=== PATIENT | female | born 1995 | race American Indian/Alaskan Native ===

== ENCOUNTER 2020-04-01 00:15 | Emergency (ER) | payer SELFPAY ==
[2020-04-01 01:33] LABS: Alanine Aminotransferase 14 units/L (7-56); BUN/Creatinine Ratio 14; Blood Urea Nitrogen 11 mg/dL (7-17); Calcium 10.3 mg/dL (8.4-10.2); Hemolysis Index 8
[2020-04-01 01:47] LABS: Hematocrit 38.3 % (30.3-42.9); Hemoglobin 12.7 gm/dl (10.1-14.3); Mean Corpuscular HGB Conc 33 % (30-34); Mean Corpuscular Volume 89 fl (79-97); Platelet Count 330 K/mm3 (140-440); Red Blood Count 4.28 M/mm3 (3.65-5.03); Red Cell Distribution Width 14.1 % (13.2-15.2)
[2020-04-01 02:04] LABS: Bacteria,Urine 1+ /HPF (Negative); Bilirubin,Urine NEG (Negative); Blood,Urine NEG (Negative); Color,Urine Amber (Yellow); Mucus,Urine 3+ /HPF; Urobilinogen,Urine < 2.0 mg/dL (<2.0)
[2020-04-01 02:57] LABS: Anisocytosis 1+; Basophils % (Manual) 0 % (0.0-1.8); Eosinophils % (Manual) 0 % (0.0-4.3); Monocytes % (Manual) 0 % (0.0-7.3); Platelet Estimate Consistent w Auto; Total Cells Counted 100
[2020-04-01] MEDS ORDERED: MORPHINE 4 MG/1 ML INJ IV ONE (03:15)
[2020-04-01] MEDS ORDERED: SODIUM CHLORIDE 0.9% 1000 ML 1,000 ML IV ONE (03:15)
[2020-04-01] MEDS ORDERED: ONDANSETRON 4 MG/2 ML INJ IV ONE ×2 (03:15→05:32)
[2020-04-01] MEDS ORDERED: PANTOPRAZOLE 40 MG INJ IV ONE (03:19)
--- NOTE | 2020-04-01 03:19 | Emergency Department Report ---
ED Abdominal Pain HPI - General Chief Complaint: Abdominal Pain Stated Complaint: NAUSEA, VOMITING BLOOD PUI?: No Time Seen by Provider: 04/01/20 03:12 Source: patient, EMS Mode of arrival: Stretcher Limitations: No Limitations - History of Present Illness Initial Comments: This is a 24-year-old female with history of daily marijuana use who presents with abdominal pain nausea vomiting for 1 week. She states that she has had stomach problems for 8 or 9 years. She plans to follow-up with GI clinic at [facility]. Moderately severe diffuse crampy abdominal pain. Past surgical history: Appendectomy MD Complaint: abdominal pain -: Gradual, week(s) (1) Location: diffuse Severity: moderate Severity scale (0 -10): 8 Quality: cramping Consistency: intermittent Improves With: nothing Worsens With: eating Associated Symptoms: nausea, vomiting - Related Data Previous Rx's Medication Instructions Recorded Last Taken Type Promethazine [Phenergan] 25 mg PO Q6HR PRN #10 tab 01/30/20 Unknown Rx Famotidine [Pepcid] 20 mg PO BID 30 Days #60 tablet 01/31/20 Unknown Rx Ondansetron [Zofran Odt] 4 mg PO Q8HR #10 tab.rapdis 01/31/20 Unknown Rx Ondansetron [Zofran Odt] 4 mg PO Q8HR PRN #10 tab.rapdis 04/01/20 Unknown Rx Allergies Allergy/AdvReac Type Severity Reaction Status Date / Time No Known Allergies Allergy Verified 07/05/16 03:50 ED Review of Systems ROS: Stated complaint: NAUSEA, VOMITING BLOOD Other details as noted in HPI Comment: All other systems reviewed and negative Constitutional: denies: fever, malaise Respiratory: denies: shortness of breath Gastrointestinal: abdominal pain, nausea, vomiting. denies: diarrhea, consti pation ED Past Medical Hx - Past Medical History Previous Medical History?: No - Surgical History Past Surgical History?: Yes Hx Appendectomy: Yes Additional Surgical History: bilateral feet - Social History Smoking Status: Current Every Day Smoker Substance Use Type: None, Marijuana - Medications Home Medications: Home Medications Medication Instructions Recorded Confirmed Last Taken Type Promethazine [Phenergan] 25 mg PO Q6HR PRN #10 tab 01/30/20 Unknown Rx Famotidine [Pepcid] 20 mg PO BID 30 Days #60 tablet 01/31/20 Unknown Rx Ondansetron [Zofran Odt] 4 mg PO Q8HR #10 tab.rapdis 01/31/20 Unknown Rx Ondansetron [Zofran Odt] 4 mg PO Q8HR PRN #10 tab.rapdis 04/01/20 Unknown Rx ED Physical Exam - General Limitations: No Limitations General appearance: alert, in no apparent distress, other (Appears uncomfortable) - Head Head exam: Present: atraumatic, normocephalic - Eye Eye exam: Present: normal appearance - ENT ENT exam: Present: mucous membranes moist - Neck Neck exam: Present: normal inspection, full ROM - Respiratory Respiratory exam: Present: normal lung sounds bilaterally. Absent: respiratory distress - Cardiovascular Cardiovascular Exam: Present: regular rate, normal rhythm. Absent: systolic murmur, diastolic murmur, rubs, gallop - GI/Abdominal GI/Abdominal exam: Present: soft, normal bowel sounds. Absent: distended, tend erness, guarding, rebound - Extremities Exam Extremities exam: Present: normal inspection - Neurological Exam Neurological exam: Present: alert, oriented X3 - Psychiatric Psychiatric exam: Present: normal affect, normal mood - Skin Skin exam: Present: warm, dry, intact, normal color. Absent: rash ED Course Vital Signs 04/01/20 04/01/20 04/01/20 00:38 03:45 03:50 Temperature 98.1 F Pulse Rate 89 90 Respiratory 18 20 20 Rate Blood Pressure 126/75 Blood Pressure 144/82 [Left] O2 Sat by Pulse 99 99 Oximetry 04/01/20 03:53 Temperature Pulse Rate Respiratory 20 Rate Blood Pressure Blood Pressure [Left] O2 Sat by Pulse 98 Oximetry ED Medical Decision Making - Lab Data Result diagrams: 04/01/20 00:53 04/01/20 00:53 - Radiology Data Radiology results: report reviewed CT abdomen pelvis revealed no evidence of acute inflammatory obstructive process within the abdomen or pelvis - Medical Decision Making This is a 24-year-old female with history of marijuana use who presents with recurrent abdominal pain. With leukocytosis, CT abdomen pelvis is warranted to rule out acute inflammatory process of the pelvis and abdomen. Differential diagnosis: IBS, cannabinoid hyperemesis syndrome, inflammatory bowel disease, peptic ulcer disease Patient was resuscitated with IV analgesia IV fluid IV antiemetics referred to GI specialist Critical care attestation.: If time is entered above; I have spent that time in minutes in the direct care of this critically ill patient, excluding procedure time. ED Disposition Clinical Impression: Abdominal pain Disposition: DC- TO HOME OR SELFCARE Is pt being admited?: No Does the pt Need Aspirin: No Condition: Stable Instructions: Abdominal Pain (ED) Prescriptions: Ondansetron [Zofran Odt] 4 mg PO Q8HR PRN #10 tab.rapdis PRN Reason: Nausea Referrals: ESMER WILKS MD [Staff Physician] - 3-5 Days Forms: Work/School Release Form(ED)
--- NOTE | 2020-04-01 04:16 | Cat Scan Report ---
CT ABDOMEN AND PELVIS WITHOUT CONTRAST INDICATION: Abdominal pain TECHNICAL: Multiple axial CT images of the abdomen and pelvis were acquired without intravenous contr ast. Sagittal and coronal reformats were obtained. All CTs at this facility utilize dose reduction techniques including automated exposure control, iterative reconstruction and weight based dosing whe n appropriate to reduce patient radiation dose to as low as reasonable achievable. COMPARISON: None. FINDINGS: Limited imaging of the bilateral lung bases demonstrates no evidence of acute abnormality. Abdomen: Evaluation is limited secondary to the lack of intravenous contrast and lack of intra-abdomi nal fat. Given these limitations, the liver, gallbladder, spleen, pancreas, bilateral adrenal glands and bilateral kidneys show no evidence of acute abnormality. There is no evidence of bowel obstructio n. Postsurgical changes are noted within the right lower quadrant and may be related to previous appe ndectomy. The appendix is not identified. Pelvis: No large amount of free pelvic fluid is visualized. The urinary bladder is decompressed. Bones and Soft Tissues: Evaluation of bony structures demonstrates no evidence of acute bony abnorma lity. Evaluation of soft tissue structures demonstrates no evidence of acute soft tissue abnormality. IMPRESSION: 1. No CT evidence of acute inflammatory or obstructive process within the abdomen or pelvis. Signer Name: Liz Ortega MD Signed: 04/01/2020 4:11 AM Workstation Name: [id number]
[2020-04-01 07:24] VITALS: BP 134/77
== END 2020-04-01 07:50 | disposition home or self-care (01) ==
LOC: ED 00:15
DX: R10.9 Unspecified abdominal pain (principal); F12.90 Cannabis use, unspecified, uncomplicated; F17.200 Nicotine dependence, unspecified, uncomplicated; Z79.899 Other long term (current) drug therapy; Z90.49 Acquired absence of other specified parts of digestive tract; Z98.890 Other specified postprocedural states
CPT/HCPCS: 36415; 74176; 80053; 81001; 83690; 84703; 85007; 85025; 96361; 96374; 96375; 96376; 99285; C9113; J2270; J2405; J7030

== ENCOUNTER 2020-07-02 07:42 | Emergency (ER) | payer SELFPAY ==
[2020-07-02] MEDS ORDERED: SODIUM CHLORIDE 0.9% 1000 ML 1,000 ML IV ONE ×2 (08:11→13:21)
[2020-07-02] MEDS ORDERED: MORPHINE 4 MG/1 ML INJ IV ONE (08:11)
[2020-07-02] MEDS ORDERED: ONDANSETRON 4 MG/2 ML INJ IV ONE (08:11)
[2020-07-02] MEDS ORDERED: ONDANSETRON 4 MG/2 ML INJ ONE (08:15)
[2020-07-02] MEDS ORDERED: MORPHINE 2 MG/1 ML INJ ONE (08:15)
--- NOTE | 2020-07-02 08:19 | Emergency Department Report ---
ED Abdominal Pain HPI - General Chief Complaint: Abdominal Pain Stated Complaint: ABD PAIN Time Seen by Provider: 07/02/20 08:10 Source: patient, EMS Mode of arrival: Wheelchair Limitations: No Limitations - History of Present Illness Initial Comments: Patient is 24 years old female with no significant past medical history. Patient presented to the ER complaining of diffuse abdominal pain, nausea and vomiting for the last 3 days. Patient described her pain as sharp with no radiation. Patient denied any diarrhea. No fever or chills. Patient stated that she has similar episode like this in the last few month. Patient was seen here last month and also a months before that and she had a CT abdomen and pelvis with IV contrast and came back negative for acute finding. MD Complaint: abdominal pain -: days(s) (3) Location: diffuse Radiation: none Severity: moderate Severity scale (0 -10): 5 Quality: sharp - Related Data Previous Rx's Medication Instructions Recorded Last Taken Type Ketorolac [Toradol] 10 mg PO Q6H PRN #20 tablet 07/02/20 Unknown Rx Ondansetron [Zofran Odt] 4 mg PO Q8HR PRN #14 tab.rapdis 07/02/20 Unknown Rx Allergies Allergy/AdvReac Type Severity Reaction Status Date / Time No Known Allergies Allergy Verified 07/05/16 03:50 ED Review of Systems ROS: Stated complaint: ABD PAIN Other details as noted in HPI Comment: All other systems reviewed and negative Constitutional: denies: chills, fever Respiratory: denies: cough, shortness of breath, SOB with exertion, SOB at rest, wheezing Cardiovascular: denies: chest pain Gastrointestinal: abdominal pain, nausea, vomiting. denies: diarrhea, constipation, hematemesis, hematochezia Musculoskeletal: denies: back pain Neurological: denies: headache, weakness, numbness, paresthesias, confusion, abnormal gait ED Past Medical Hx - Past Medical History Previous Medical History?: No - Surgical History Past Surgical History?: Yes Hx Appendectomy: Yes Additional Surgical History: bilateral feet - Social History Smoking Status: Current Every Day Smoker Substance Use Type: Alcohol - Medications Home Medications: Home Medications Medication Instructions Recorded Confirmed Last Taken Type Ketorolac [Toradol] 10 mg PO Q6H PRN #20 tablet 07/02/20 Unknown Rx Ondansetron [Zofran Odt] 4 mg PO Q8HR PRN #14 tab.rapdis 07/02/20 Unknown Rx ED Physical Exam - General Limitations: No Limitations General appearance: alert, in distress (Patient is actively vomiting.) - Head Head exam: Present: atraumatic, normocephalic, normal inspection - Eye Eye exam: Present: normal appearance - ENT ENT exam: Present: mucous membranes dry - Neck Neck exam: Present: normal inspection, full ROM. Absent: tenderness, meningismus - Respiratory Respiratory exam: Present: normal lung sounds bilaterally - Cardiovascular Cardiovascular Exam: Present: tachycardia - GI/Abdominal GI/Abdominal exam: Present: soft, normal bowel sounds. Absent: distended, tenderness, guarding, rebound, rigid, mass, bruit, pulsatile mass, hernia - Extremities Exam Extremities exam: Present: normal inspection, full ROM, normal capillary refill. Absent: tenderness, pedal edema, joint swelling, calf tenderness - Back Exam Back exam: Present: normal inspection, full ROM. Absent: CVA tenderness (R), CVA tenderness (L) - Neurological Exam Neurological exam: Present: alert, oriented X3, CN II-XII intact, normal gait, reflexes normal. Absent: motor sensory deficit - Psychiatric Psychiatric exam: Present: normal mood - Skin Skin exam: Present: warm, intact, normal color ED Course Vital Signs 07/02/20 07/02/20 07/02/20 07:43 07:46 08:06 Temperature 98.0 F 98.0 F Pulse Rate 111 H 114 H Respiratory 24 20 Rate Blood Pressure 145/101 145/101 O2 Sat by Pulse 98 96 100 Oximetry 07/02/20 07/02/20 07/02/20 08:15 08:30 08:45 Temperature Pulse Rate 77 113 H 77 Respiratory 12 16 29 H Rate Blood Pressure 139/91 152/99 146/92 O2 Sat by Pulse 99 100 98 Oximetry 07/02/20 07/02/20 07/02/20 09:00 09:15 09:30 Temperature Pulse Rate 94 H 78 85 Respiratory 12 17 24 Rate Blood Pressure 138/96 130/84 130/85 O2 Sat by Pulse 95 98 Oximetry 07/02/20 07/02/20 07/02/20 10:47 11:00 11:15 Temperature Pulse Rate 71 79 Respiratory 14 11 L Rate Blood Pressure 130/85 131/82 144/92 O2 Sat by Pulse Oximetry 07/02/20 07/02/20 07/02/20 11:30 11:45 12:00 Temperature Pulse Rate 73 74 78 Respiratory 15 11 L 12 Rate Blood Pressure 130/81 131/92 131/78 O2 Sat by Pulse Oximetry 07/02/20 07/02/20 07/02/20 12:15 12:30 12:45 Temperature Pulse Rate 72 81 80 Respiratory 18 18 20 Rate Blood Pressure 123/77 127/77 127/80 O2 Sat by Pulse 98 96 Oximetry 07/02/20 07/02/20 07/02/20 13:00 13:16 13:30 Temperature Pulse Rate 136 H 73 76 Respiratory 21 23 20 Rate Blood Pressure 127/80 138/83 138/84 O2 Sat by Pulse Oximetry 07/02/20 07/02/20 07/02/20 13:45 14:00 14:15 Temperature Pulse Rate 74 78 76 Respiratory 22 21 17 Rate Blood Pressure 131/86 131/86 137/87 O2 Sat by Pulse Oximetry 07/02/20 07/02/20 07/02/20 14:31 14:45 15:01 Temperature Pulse Rate 96 H 93 H 82 Respiratory 20 18 20 Rate Blood Pressure 130/89 130/89 130/89 O2 Sat by Pulse Oximetry 07/02/20 07/02/20 07/02/20 15:15 15:31 15:45 Temperature Pulse Rate 73 78 74 Respiratory 17 17 16 Rate Blood Pressure 130/89 130/89 130/89 O2 Sat by Pulse 98 98 99 Oximetry 07/02/20 07/02/20 07/02/20 16:01 16:15 16:30 Temperature Pulse Rate 84 100 H 87 Respiratory 20 17 19 Rate Blood Pressure 130/89 140/89 O2 Sat by Pulse 97 100 Oximetry ED Medical Decision Making - Lab Data Result diagrams: 07/02/20 08:35 07/02/20 08:35 - Radiology Data Radiology results: report reviewed - Medical Decision Making Patient is 24 years old female with no significant past medical history. Patient presented to the ER complaining of diffuse abdominal pain, nausea and vomiting for the last 3 days. Patient described her pain as sharp with no radiation. Patient denied any diarrhea. No fever or chills. Patient stated that she has similar episode like this in the last few month. Patient was seen here last month and also a months before that and she had a CT abdomen and pelvis with IV contrast and came back negative for acute finding. Patient received multiantiemetic medication including Zofran, Reglan and Benadryl. Patient stated that she is feeling much better now. No vomiting. Labs reviewed and is unremarkable except for potassium of 2.9 replaced with potassium chloride 20 mEq IV and 40 mEq p.o. I discussed with the patient the possibility of cannabinoid syndrome. Patient admitted that her symptoms usually start after she smoked marijuana. Patient given prescription for Zofran and ketorolac for pain and advised to follow-up with her primary doctor in the next 2 to 3 days and to return to the ER if she develop any new symptoms. Critical care attestation.: If time is entered above; I have spent that time in minutes in the direct care of this critically ill patient, excluding procedure time. ED Disposition Clinical Impression: Abdominal pain, Intractable nausea and vomiting, Cannabinoid hyperemesis syndrome Disposition: - TO HOME OR SELFCARE Is pt being admited?: No Condition: Stable Instructions: Nausea and Vomiting, Adult, [id number], Cannabinoid Hyperemesis Syndrome, Abdominal Pain (ED) Prescriptions: Ketorolac [Toradol] 10 mg PO Q6H PRN #20 tablet PRN Reason: Pain Ondansetron [Zofran Odt] 4 mg PO Q8HR PRN #14 tab.rapdis PRN Reason: Nausea And Vomiting Referrals: PRIMARY CARE, [Primary Care Provider] - 3-5 Days
[2020-07-02] MEDS ORDERED: diphenhydrAMINE 50 MG/ML VIAL ONE (08:54)
[2020-07-02 09:00] LABS: Basophils # (Auto) 0.1 K/mm3 (0.0-0.1); Basophils % (Auto) 0.9 % (0.0-1.8); Eosinophils # (Auto) 0.1 K/mm3 (0.0-0.4); Eosinophils % (Auto) 0.9 % (0.0-4.3); Hematocrit 37.1 % (30.3-42.9); Hemoglobin 12.9 gm/dl (10.1-14.3); Lymphocytes # (Auto) 1.2 K/mm3 (1.2-5.4); Lymphocytes % (Auto) 16.9 % (13.4-35.0); Mean Corpuscular HGB Conc 35 % (30-34); Mean Corpuscular Volume 86 fl (79-97); Monocytes # (Auto) 0.5 K/mm3 (0.0-0.8); Monocytes % (Auto) 7.8 % (0.0-7.3); Platelet Count 319 K/mm3 (140-440); Red Blood Count 4.33 M/mm3 (3.65-5.03); Red Cell Distribution Width 13.3 % (13.2-15.2)
[2020-07-02] MEDS ORDERED: diphenhydrAMINE 50 MG/ML VIAL IV ONE (09:00)
[2020-07-02 09:19] LABS: Alanine Aminotransferase 9 units/L (7-56); Albumin 4.3 g/dL (3.9-5); Blood Urea Nitrogen 12 mg/dL (7-17); Calcium 9.2 mg/dL (8.4-10.2); Hemolysis Index 2
[2020-07-02 09:22] LABS: BUN/Creatinine Ratio 17
[2020-07-02 10:09] LABS: Amphetamine Screen,Urine PRESUMPTIVE NEGATIVE; Bacteria,Urine 1+ /HPF (Negative); Benzodiazepines Screen,Urine PRESUMPTIVE NEGATIVE; Bilirubin,Urine NEG (Negative); Blood,Urine MOD (Negative); Cannabinoid Screen,Urine PRESUMPTIVE POSITIVE; Cocaine Screen,Urine PRESUMPTIVE NEGATIVE; Color,Urine Yellow (Yellow); Methadone Screen,Urine PRESUMPTIVE NEGATIVE; Mucus,Urine FEW /HPF; Opiate Screen,Urine PRESUMPTIVE POSITIVE; Urobilinogen,Urine < 2.0 mg/dL (<2.0)
[2020-07-02 10:21] LABS: Protein,Urine <15 mg/dL mg/dL (Negative)
[2020-07-02] MEDS ORDERED: POTASSIUM CHLORIDE ER 20 MEQ TAB PO ONE (10:27)
[2020-07-02] MEDS: POTASSIUM CHLORIDE 10 MEQ 10 MEQ/100 ML BAG IV SCH ×2 (10:51→12:53)
[2020-07-02] MEDS ORDERED: METOCLOPRAMIDE 10 MG/2 ML INJ ONE (11:54)
[2020-07-02] MEDS ORDERED: METOCLOPRAMIDE 10 MG/2 ML INJ IV ONE (11:57)
[2020-07-02] MEDS ORDERED: HALOPERIDOL LACTATE 5 MG/1 ML INJ IM ONE (14:52)
[2020-07-02 16:18] VITALS: BP 140/89
== END 2020-07-02 16:30 | disposition home or self-care (01) ==
LOC: ED 07:42
DX: R10.84 Generalized abdominal pain (principal); R11.2 Nausea with vomiting, unspecified; R11.10 Vomiting, unspecified; F17.200 Nicotine dependence, unspecified, uncomplicated; Z90.49 Acquired absence of other specified parts of digestive tract; Z79.899 Other long term (current) drug therapy
CPT/HCPCS: 36415; 80053; 80307; 81001; 83690; 84703; 85025; 96361; 96372; 96374; 96375; 99284; J1200; J1630; J2270; J2405; J2765; J3480; J7030

== ENCOUNTER 2020-09-03 09:12 | Emergency (ER) | payer SELFPAY ==
--- NOTE | 2020-09-03 09:27 | Event Note ---
ED Screening Note ED Screening Note: gen abd pain n/v for 3 days has had before heavy thc use etoh no cig psh appendectomy rx none tachynpic on arrival This initial assessment/diagnostic orders/clinical plan/treatment(s) is/are subject to change based on patients health status, clinical progression and re- assessment by fellow clinical providers in the ED. Further treatment and workup at subsequent clinical providers discretion. Patient/guardian urged not to elope from the ED as their condition may be serious if not clinically assessed and managed. Initial orders include: labs
[2020-09-03 09:31] VITALS: BP 147/94
[2020-09-03 11:11] LABS: Basophils % (Auto) 0.4 % (0.0-1.8); Hematocrit 36.2 % (30.3-42.9); Hemoglobin 11.8 gm/dl (10.1-14.3); Lymphocytes # (Auto) 0.6 K/mm3 (1.2-5.4); Lymphocytes % (Auto) 8.5 % (13.4-35.0); Mean Corpuscular HGB Conc 33 % (30-34); Mean Corpuscular Volume 87 fl (79-97); Monocytes # (Auto) 0.5 K/mm3 (0.0-0.8); Monocytes % (Auto) 6.7 % (0.0-7.3); Platelet Count 402 K/mm3 (140-440); Red Blood Count 4.14 M/mm3 (3.65-5.03); Red Cell Distribution Width 15.2 % (13.2-15.2)
[2020-09-03] MEDS ORDERED: ONDANSETRON 4 MG/2 ML INJ IV ONE ×2 (11:23→11:41)
[2020-09-03] MEDS ORDERED: SODIUM CHLORIDE 0.9% 1000 ML 1,000 ML IV ONE (11:23)
[2020-09-03] MEDS ORDERED: diphenhydrAMINE 50 MG/ML VIAL IV ONE (11:23)
[2020-09-03] MEDS ORDERED: FAMOTIDINE 20 MG/2 ML INJ IV ONE (11:23)
--- NOTE | 2020-09-03 11:29 | Emergency Department Report ---
ED General Adult HPI - General Chief complaint: Abdominal Pain Stated complaint: ABDOMINAL PAIN Time Seen by Provider: 09/03/20 09:25 Source: patient Mode of arrival: Ambulatory Limitations: No Limitations - History of Present Illness Initial comments: Patient is a 24-year-old female presents emergency room with complaints of nausea vomiting that began 3 days ago. She states that she has generalized abdominal discomfort. She states that she had one episode of vomiting which had small streaks of blood after she had been frequently vomiting. She has no heavy amount of bleeding or passing clots. She states that she is unable to tolerate p.o. intake. She states that she has this frequently. She has a GI doctor at [facility] and last saw them in August 2019. She states that she needs to make another appointment with them. She is a heavy marijuana user and continues to use marijuana despite her symptoms. She states that she also drank alcohol 3 days ago before her symptoms began. She denies any fever, chills, urinary symptoms, hematochezia, melena. Past medical history of asthma. Past surgical history of appendectomy. No allergies to medications. Last menstrual cycle beginning of August 2020. - Related Data Previous Rx's Medication Instructions Recorded Last Taken Type Ketorolac [Toradol] 10 mg PO Q6H PRN #20 tablet 07/02/20 Unknown Rx Ondansetron [Zofran Odt] 4 mg PO Q8HR PRN #14 tab.rapdis 07/02/20 Unknown Rx Ondansetron [Zofran Odt] 4 mg PO Q8HR PRN #20 tab.rapdis 09/03/20 Unknown Rx Promethazine HCl [Phenergan SUPPOS] 25 mg RC Q8HR PRN #10 supp.rect 09/03/20 Unknown Rx Allergies Allergy/AdvReac Type Severity Reaction Status Date / Time No Known Allergies Allergy Verified 07/05/16 03:50 ED Review of Systems ROS: Stated complaint: ABDOMINAL PAIN Other details as noted in HPI Comment: All other systems reviewed and negative ED Past Medical Hx - Past Medical History Previous Medical History?: Yes Hx Hypertension: Yes Hx Asthma: Yes - Surgical History Hx Appendectomy: Yes Additional Surgical History: bilateral feet - Social History Smoking Status: Never Smoker Substance Use Type: Marijuana - Medications Home Medications: Home Medications Medication Instructions Recorded Confirmed Last Taken Type Ketorolac [Toradol] 10 mg PO Q6H PRN #20 tablet 07/02/20 Unknown Rx Ondansetron [Zofran Odt] 4 mg PO Q8HR PRN #14 tab.rapdis 07/02/20 Unknown Rx Ondansetron [Zofran Odt] 4 mg PO Q8HR PRN #20 tab.rapdis 09/03/20 Unknown Rx Promethazine HCl [Phenergan SUPPOS] 25 mg RC Q8HR PRN #10 supp.rect 09/03/20 Unknown Rx ED Physical Exam - General Limitations: No Limitations General appearance: alert, in no apparent distress - Head Head exam: Present: atraumatic, normocephalic - Eye Eye exam: Present: normal appearance - ENT ENT exam: Present: mucous membranes dry - Respiratory Respiratory exam: Present: normal lung sounds bilaterally. Absent: respiratory distress, wheezes, rales, rhonchi, stridor, chest wall tenderness, accessory muscle use, decreased breath sounds, prolonged expiratory - Cardiovascular Cardiovascular Exam: Present: regular rate, normal rhythm, normal heart sounds. Absent: systolic murmur, diastolic murmur, rubs, gallop - GI/Abdominal GI/Abdominal exam: Present: soft, normal bowel sounds. Absent: distended, tenderness, guarding, rebound, rigid - Neurological Exam Neurological exam: Present: alert, oriented X3 - Psychiatric Psychiatric exam: Present: normal affect, normal mood - Skin Skin exam: Present: warm, dry, intact ED Course Vital Signs 09/03/20 09:27 Temperature 98.0 F Pulse Rate 121 H Respiratory 20 Rate Blood Pressure 147/94 O2 Sat by Pulse 99 Oximetry ED Medical Decision Making - Lab Data Result diagrams: 09/03/20 10:35 09/03/20 10:35 Lab Results 09/03/20 09/03/20 09/03/20 Range/Units 10:35 10:35 14:40 WBC 7.3 (4.5-11.0) K/mm3 RBC 4.14 (3.65-5.03) M/mm3 Hgb 11.8 (10.1-14.3) gm/dl Hct 36.2 (30.3-42.9) % MCV 87 (79-97) fl MCH 29 (28-32) pg MCHC 33 (30-34) % RDW 15.2 (13.2-15.2) % Plt Count 402 (140-440) K/mm3 Lymph % (Auto) 8.5 L (13.4-35.0) % [place] % (Auto) 6.7 (0.0-7.3) % Eos % (Auto) 0.0 (0.0-4.3) % Baso % (Auto) 0.4 (0.0-1.8) % Lymph # (Auto) 0.6 L (1.2-5.4) K/mm3 [place] # (Auto) 0.5 (0.0-0.8) K/mm3 Eos # (Auto) 0.0 (0.0-0.4) K/mm3 Baso # (Auto) 0.0 (0.0-0.1) K/mm3 Seg Neutrophils % 84.4 H (40.0-70.0) % Seg Neutrophils # 6.1 (1.8-7.7) K/mm3 Sodium 137 (137-145) mmol/L Potassium 3.7 (3.6-5.0) mmol/L Chloride 100.1 (98-107) mmol/L Carbon Dioxide 26 (22-30) mmol/L Anion Gap 15 mmol/L BUN 9 (7-17) mg/dL Creatinine 0.7 (0.6-1.2) mg/dL Estimated GFR > 60 ml/min BUN/Creatinine Ratio 13 % Glucose 129 H (65-100) mg/dL Calcium 10.1 (8.4-10.2) mg/dL Total Bilirubin 0.40 (0.1-1.2) mg/dL AST 15 (5-40) units/L ALT 10 (7-56) units/L Alkaline Phosphatase 52 (35-129) units/L Total Creatine Kinase 130 (30-135) units/L Total Protein 8.0 (6.3-8.2) g/dL Albumin 4.9 (3.9-5) g/dL Albumin/Globulin Ratio 1.6 % Lipase 11 L (13-60) units/L Urine Color Yellow (Yellow) Urine Turbidity Cloudy (Clear) Urine pH 7.0 (5.0-7.0) Ur Specific [place] 1.011 (1.003-1.030) Urine Protein <15 mg/dl (Negative) mg/dL Urine Glucose (UA) Neg (Negative) mg/dL Urine Ketones 20 (Negative) mg/dL Urine Blood Neg (Negative) Urine Nitrite Neg (Negative) Urine Bilirubin Neg (Negative) Urine Urobilinogen < 2.0 (<2.0) mg/dL Ur Leukocyte Esterase Tr (Negative) Urine WBC (Auto) 5.0 (0.0-6.0) /HPF Urine RBC (Auto) 1.0 (0.0-6.0) /HPF U Epithel Cells (Auto) 34.0 H (0-13.0) /HPF Urine Bacteria (Auto) 1+ (Negative) /HPF Urine Mucus Few /HPF Urine HCG, Qual Negative (Negative) Vital Signs 09/03/20 09:27 Temperature 98.0 F Pulse Rate 121 H Respiratory 20 Rate Blood Pressure 147/94 O2 Sat by Pulse 99 Oximetry - Radiology Data Radiology results: report reviewed Ordering Physician: MARY SPENCER Date of Service: 09/03/20 Procedure(s): XR abd series w cxr 1V Accession Number(s): [id number] cc: MARY SPENCER Fluoro Time In Minutes: ABDOMEN 3 VIEW(S) INDICATION / CLINICAL INFORMATION: n/v abd pain. COMPARISON: CT dated 04/01/2020. FINDINGS: TUBES / LINES: None. BOWEL GAS PATTERN: Nonspecific bowel gas pattern. No radiographic evidence of obstruction. FREE AIR / EXTRALUMINAL GAS: None seen. ADDITIONAL FINDINGS: No significant additional findings. CHEST: Visualized chest shows no significant abnormality. IMPRESSION: No acute findings. Signer Name: Angie Drake MD Signed: 09/03/2020 4:15 PM Workstation Name: [email or web address] Transcribed By: JS Dictated By: ANGIE DRAKE MD Electronically Authenticated By: ANGIE DRAKE MD Signed Date/Time: 09/03/201614 DD/ 13 TD/TT: - Medical Decision Making Patient is a 24-year-old female presents emergency room with complaints of nausea vomiting that began 3 days ago. She states that she has generalized abdominal discomfort. She states that she had one episode of vomiting which had small streaks of blood after she had been frequently vomiting. She has no heavy amount of bleeding or passing clots. She states that she is unable to tolerate p.o. intake. She states that she has this frequently. She has a GI doctor at [facility] and last saw them in August 2019. She states that she needs to make another appointment with them. She is a heavy marijuana user and continues to use marijuana despite her symptoms. She states that she also drank alcohol 3 days ago before her symptoms began. She denies any fever, chills, urinary symp toms, hematochezia, melena. Past medical history of asthma. Past surgical history of appendectomy. No allergies to medications. Last menstrual cycle beginning of August 2020. Initial vitals with tachycardia, on reexamination heart rate has improved. On exam no abdominal tenderness to palpation, no guarding, no rebound, no rigidity, normal bowel sounds, no peritoneal signs. Orders placed prior to my examination. Labs are stable. UA without evidence of UTI. X-ray abdomen with chest: No acute findings. Patient given 1 L normal saline and multiple antiemetics the patient was feeling much better and ready to go home. Patient was able to tolerate p.o. intake while in the ED. Symptoms likely related to cannabinoid induced hyperemesis. She has new symptoms cyclically. Patient given prescription for Zofran and Phenergan suppositories. Advised patient Please use medication as prescribed. Please only use Phenergan suppositories if Zofran is not helping. Increase your fluid intake. Eat a bland liquid diet and slowly advance your diet as tolerated. Avoid marijuana and alcohol use. Follow-up with your primary care doctor. Follow-up with a GI doctor. Return to emergency room for any new or worsening symptoms. Critical care attestation.: If time is entered above; I have spent that time in minutes in the direct care of this critically ill patient, excluding procedure time. ED Disposition Clinical Impression: Marijuana use Nausea & vomiting Qualifiers: Vomiting type: unspecified Vomiting Intractability: non-intractable Qualified Code(s): R11.2 - Nausea with vomiting, unspecified Disposition: DC-01 TO HOME OR SELFCARE Is pt being admited?: No Does the pt Need Aspirin: No Condition: Stable Instructions: Cannabis Use Disorder, Cannabinoid Hyperemesis Syndrome, Abdomina l Pain (ED) Additional Instructions: Please use medication as prescribed. Please only use Phenergan suppositories if Zofran is not helping. Increase your fluid intake. Eat a bland liquid diet and slowly advance your diet as tolerated. Avoid marijuana and alcohol use. F ollow-up with your primary care doctor. Follow-up with a GI doctor. Return to emergency room for any new or worsening symptoms. Prescriptions: Promethazine HCl [Phenergan SUPPOS] 25 mg RC Q8HR PRN #10 supp.rect PRN Reason: nausea and vomiting Ondansetron [Zofran Odt] 4 mg PO Q8HR PRN #20 tab.rapdis PRN Reason: Nausea And Vomiting Referrals: PRIMARY CARE, [Primary Care Provider] - 2-3 Days your, GI doctor [Other] - 3-5 Days YANG EDDY MD [Staff Physician] - 2-3 Days [facility] [Provider Group] - 2-3 Days Time of Disposition: 16:56 Print Language: MOSOT[place]
[2020-09-03 11:31] LABS: Alanine Aminotransferase 10 units/L (7-56); Albumin 4.9 g/dL (3.9-5); Blood Urea Nitrogen 9 mg/dL (7-17); Calcium 10.1 mg/dL (8.4-10.2); Hemolysis Index 1
[2020-09-03 11:32] LABS: BUN/Creatinine Ratio 13
[2020-09-03] MEDS ORDERED: MORPHINE 4 MG/1 ML INJ IV ONE (11:41)
[2020-09-03] MEDS ORDERED: PROCHLORPERAZINE EDISYLATE 10 MG/2 ML VIAL IV ONE (15:00)
[2020-09-03 15:18] LABS: Bacteria,Urine 1+ /HPF (Negative); Bilirubin,Urine NEG (Negative); Blood,Urine NEG (Negative); Color,Urine Yellow (Yellow); Mucus,Urine FEW /HPF; Protein,Urine <15 mg/dL mg/dL (Negative); Urobilinogen,Urine < 2.0 mg/dL (<2.0)
[2020-09-03 15:19] LABS: HCG Qualitative,Urine Negative (Negative)
--- NOTE | 2020-09-03 16:20 | XRay Report ---
ABDOMEN 3 VIEW(S) INDICATION / CLINICAL INFORMATION: n/v abd pain. COMPARISON: CT dated 04/01/2020. FINDINGS: TUBES / LINES: None. BOWEL GAS PATTERN: Nonspecific bowel gas pattern. No radiographic evidence of obstruction. FREE AIR / EXTRALUMINAL GAS: None seen. ADDITIONAL FINDINGS: No significant additional findings. CHEST: Visualized chest shows no significant abnormality. IMPRESSION: No acute findings. Signer Name: Garry Drake MD Signed: 09/03/2020 4:15 PM Workstation Name: [id number]
[2020-09-03] MEDS ORDERED: ONDANSETRON 4 MG/2 ML INJ ONE (16:42)
== END 2020-09-03 17:20 | disposition home or self-care (01) ==
LOC: ED 09:12
DX: F12.10 Cannabis abuse, uncomplicated (principal); R11.2 Nausea with vomiting, unspecified; I10 Essential (primary) hypertension; J45.909 Unspecified asthma, uncomplicated; Z79.899 Other long term (current) drug therapy
CPT/HCPCS: 36415; 74022; 80053; 81001; 81025; 82550; 83690; 85025; 96361; 96374; 96375; 96376; 99284; J0780; J1200; J2405; J7030